=== PATIENT | female | born 1965 | race Caucasian/White ===

== ENCOUNTER → 2022-12-26 15:14 | Outpatient (BNVA) | payer BC, SELFPAY | PROVIDERS: Visit Provider Family Medicine | DX: E03.9 Hypothyroidism, unspecified (principal); Z85.3 Personal history of malignant neoplasm of breast; Z85.828 Personal history of other malignant neoplasm of skin | CPT/HCPCS: 80053; 80061; 84439; 84443; 85025 ==

== ENCOUNTER → 2023-01-30 13:41 | Outpatient (BNVA) | payer BC, SELFPAY | PROVIDERS: Referring Provider Family Medicine; Visit Provider Obstetrics & Gynecology | DX: Z12.4 Encounter for screening for malignant neoplasm of cervix (principal) | CPT/HCPCS: 87624 ==

== ENCOUNTER → 2023-02-14 13:57 | Outpatient (BNVA) | payer BC, SELFPAY | PROVIDERS: Visit Provider Nurse Practitioner Family | DX: R05.9 Cough, unspecified (principal); J06.9 Acute upper respiratory infection, unspecified | CPT/HCPCS: 87426 ==

== ENCOUNTER 2023-02-15 14:33 | Outpatient (CLI) | payer BC, SELFPAY ==
--- NOTE | 2023-02-15 14:50 | MM_ITS ---
WS: [id number] BILATERAL 3D TOMOSYNTHESIS DIGITAL DIAGNOSTIC MAMMOGRAPHY WITH CAD CLINICAL INFORMATION: ANNUAL - HX BR CA HISTORY: History of LEFT breast cancer with lumpectomy and radiation COMPARISON: Outside studies December 2017 TECHNIQUE: Bilateral CC, MLO, and ML views. FINDINGS: Scattered fibroglandular densities bilaterally. Surgical clips upper outer quadrant LEFT breast with lumpectomy changes. This is similar to previous. Treatment related changes LEFT breast. Incidental pu nctate calcifications. No suspicious focal mass, asymmetry, calcifications, or architectural distortion. No evidence of trent gnancy. IMPRESSION: MM/[place] [id number] BI-RADS: 2-Benign FOLLOW UP: 1 Year Follow-up Recommend return to annual diagnostic mammography.
== END 2023-02-15 14:34 | disposition home or self-care (01) ==
PROVIDERS: PCP Family Medicine; Visit Provider Family Medicine
DX: Z85.3 Personal history of malignant neoplasm of breast (principal)
CPT/HCPCS: 77062; G0279

== ENCOUNTER 2023-07-09 08:21 | Oncology outpatient (recurring) (ONCR) | payer BC, SELFPAY ==
[2023-07-09 09:44] VITALS: BP 133/96; PULSE 85; RESP 16; TEMP 36.6; O2SAT 97
[2023-07-09 09:59] LABS: Basophils # 0.1 10^3/uL (0.0-0.1); Basophils % 0.9 %; Eosinophils # 0.2 10^3/uL (0.0-0.8); Eosinophils % 2.2 %; Lymphocytes # 2.2 10^3/uL (0.8-4.8); Lymphocytes % 23.8 %; Mean Corpuscular HGB Conc 32.1 g/dL (30-55); Mean Corpuscular Hemoglobin 29.5 pg (27-33); Mean Corpuscular Volume 91.7 fl (85-98); Mean Platelet Volume 10.5 fL (7.4-10.4); Monocytes # 0.9 10^3/uL (0.2-0.9); Monocytes % 9.8 %; Neutrophils # 5.75 10^3/uL (1.8-7.7); Neutrophils % 63.1 %; Nucleated Red Blood Cells % 0 %; Platelet Count 270 10^3/cmm (157-399); Red Blood Count 4.58 10^6/uL (3.85-5.65); White Blood Count 9.11 10^3/uL (3.29-11.43)
[2023-07-09 10:20] LABS: Alanine Aminotransferase 14 U/L (0-33); Albumin Level 4.5 g/dL (3.5-5.2); Alkaline Phosphatase 139 U/L (35-105); Anion Gap 15.8 (5-19); Aspartate Amino Transferase 14 U/L (0-32); Blood Urea Nitrogen 18 mg/dL (6-20); Calcium 10.2 mg/dL (8.5-10.5); Carbon Dioxide 26 mmol/L (22-29); Chloride 102 mmol/L (98-107); Globulin 3.8 g/dL (1.3-4.6); Glomerular Filtration Rate 73.4 mL/min (90-130); Glucose 94 mg/dL (65-115); Osmolality Calculated 290 mOsm/kg (285-295); Potassium 4.8 mmol/L (3.5-5.1); Sodium 139 mmol/L (136-145); Total Bilirubin 0.3 mg/dL (0.15-1.2); Total Protein 8.3 g/dL (6.6-8.7)
== END 2023-07-11 23:59 | disposition home or self-care (01) ==
PROVIDERS: PCP Family Medicine; Visit Provider Internal Medicine
DX: C50.912 Malignant neoplasm of unspecified site of left female breast (principal)
CPT/HCPCS: 36415; 80053; 85025

== ENCOUNTER → 2023-09-07 15:39 | Outpatient (BNVA) | payer BC, SELFPAY | PROVIDERS: PCP Family Medicine; Visit Provider Family Medicine | DX: M25.512 Pain in left shoulder | CPT/HCPCS: 73030 ==

== ENCOUNTER 2023-10-23 07:05 | Outpatient (CLI) | payer BC, SELFPAY ==
--- NOTE | 2023-10-23 07:15 | MR_ITS ---
WS: [id number] MRI LEFT SHOULDER HISTORY: rotator cuff tear COMPARISON: Radiograph 09/07/2023 TECHNIQUE: Multiplanar sequences of the shoulder joint are submitted. Mild AC joint arthritis. Narrowing of the joint space with small osteophytes. Minimal downsloping of the acromion. Mild subacromial impingement. No os acromion. Normal position of the biceps tendon. Slightly high riding humeral head. Mild narrowing of the glenohumeral joint. No atrophy of the rotato r cuff muscles. There is no edema. There is abnormal signal with thickening and possible tear involvi ng the distal subscapularis tendon. Within the distal tendon there is increased T2 signal centrally a nd loss of the normal contour of the tendon. A portion of the tendon does appear still to be intact. Mild tendinopathy in the supraspinatus tendon directly over the humeral head. Very mild flattening of the posterolateral humeral head but there is no marrow edema to suggest a rec ent or acute injury. No definite labral tear. There is degenerative fraying involving the superior an terior labrum MR/MR shoulder LT wo con* [id number] IMPRESSION: 1. Thickening and abnormal signal involving the distal subscapularis tendon. I ncreased fluid signal in the central distal tendon suggest may be a split tear along with tendinopathy. 2. Mild AC joint arthritis. 3. Fraying and degenerative changes involving the superior and anterior labrum but no definite tear. 4. Mild tendinopathy distal supraspinatus tendon directly over the humeral hea d.
== END 2023-10-23 07:06 | disposition home or self-care (01) ==
LOC: RAD 07:05
PROVIDERS: PCP Family Medicine; Visit Provider Family Medicine
DX: M25.512 Pain in left shoulder (principal); M75.102 Unspecified rotator cuff tear or rupture of left shoulder, not specified as traumatic; M19.012 Primary osteoarthritis, left shoulder
CPT/HCPCS: 73221

== ENCOUNTER 2023-10-30 12:35 | Outpatient (RCR) | payer BC, SELFPAY | END 2023-11-09 23:59 | disposition home or self-care (01) | LOC: SPT 12:35 | PROVIDERS: PCP Family Medicine; Visit Provider Family Medicine | DX: M25.512 Pain in left shoulder (principal) | CPT/HCPCS: 97110; 97161; G0283 ==

== ENCOUNTER 2023-11-10 06:00 | Outpatient (RCR) | payer BC, SELFPAY | END 2023-12-09 23:59 | disposition home or self-care (01) | LOC: SPT 06:00 | PROVIDERS: PCP Family Medicine; Visit Provider Family Medicine | DX: M25.512 Pain in left shoulder (principal) | CPT/HCPCS: 97110; G0283 ==

== ENCOUNTER → 2023-11-23 08:26 | Outpatient (BNVA) | payer BC, SELFPAY | PROVIDERS: PCP Family Medicine; Visit Provider Family Medicine | DX: E03.9 Hypothyroidism, unspecified (principal) | CPT/HCPCS: 84439; 84443 ==

== ENCOUNTER 2024-04-04 08:37 | Oncology outpatient (recurring) (ONCR) | payer BC, SELFPAY ==
[2024-04-04 09:16] LABS: Basophils # 0.1 10^3/uL (0.0-0.1); Basophils % 0.6 %; Eosinophils # 0.3 10^3/uL (0.0-0.8); Eosinophils % 2.6 %; Hematocrit 41.7 % (36-47); Lymphocytes # 2.4 10^3/uL (0.8-4.8); Mean Corpuscular HGB Conc 31.4 g/dL (30-55); Mean Corpuscular Hemoglobin 29.7 pg (27-33); Mean Corpuscular Volume 94.6 fl (85-98); Mean Platelet Volume 10.8 fL (7.4-10.4); Monocytes % 10.5 %; Neutrophils # 5.89 10^3/uL (1.8-7.7); Nucleated Red Blood Cells % 0 %; Platelet Count 267 10^3/cmm (157-399); Red Blood Count 4.41 10^6/uL (3.85-5.65); Red Cell Distribution Width 14.9 % (12.1-15.1); White Blood Count 9.67 10^3/uL (3.29-11.43)
[2024-04-04 09:41] LABS: Alanine Aminotransferase 16 U/L (0-33); Albumin Level 4.1 g/dL (3.5-5.2); Alkaline Phosphatase 119 U/L (35-105); Aspartate Amino Transferase 14 U/L (0-32); Blood Urea Nitrogen 19 mg/dL (8-23); Calcium 8.9 mg/dL (8.5-10.5); Carbon Dioxide 25 mmol/L (22-29); Chloride 106 mmol/L (98-107); Creatinine Clr Calc Pharmacy 134.7174; Globulin 3.3 g/dL (1.3-4.6); Glucose 89 mg/dL (65-115); Osmolality Calculated 294 mOsm/kg (285-295); Sodium 141 mmol/L (136-145); Total Bilirubin 0.3 mg/dL (0.15-1.2); Total Protein 7.4 g/dL (6.6-8.7)
[2024-04-04 12:03] LABS: 25 Hydroxy Vitamin D 21 ng/mL (30-100)
== END 2024-04-10 23:59 | disposition home or self-care (01) ==
PROVIDERS: Nurse Practitioner Family; PCP Family Medicine; Visit Provider Internal Medicine
DX: M85.80 Other specified disorders of bone density and structure, unspecified site (principal); C50.912 Malignant neoplasm of unspecified site of left female breast; Z85.3 Personal history of malignant neoplasm of breast
CPT/HCPCS: 36415; 80053; 82306; 85025

== ENCOUNTER 2024-04-16 15:29 | Oncology outpatient (recurring) (ONCR) | payer BC, SELFPAY ==
--- NOTE | 2024-04-16 15:30 | XR_ITS ---
WS: [id number] SCREENING DEXA SCAN [employer] CLINICAL INFORMATION: osteopenia, history of AI use COMPARISON: None. FINDINGS: The L1-L4 bone mineral density measures 1.052 g/cm2. This corresponds to a T score score of -1.1 and Z score of -1.0. Left femoral neck bone mineral density measures 0.913 g/cm2. This corresponds to a T score of -0.8 an d Z score of -0.7. Right femoral neck bone mineral density measures 0.852 g/cm2. This corresponds to a T score -1.2of an d Z score of -1.1. Mean femoral neck bone mineral density measures 0.882 g/cm2. This corresponds to a T score of -1.0 an d Z score of -0.9. XR/XR DEXA axial skeleton* [id number] IMPRESSION: Osteopenia lumbar spine. Osteopenia femoral necks. Patient's FRAX calculated 10 year probability for major osteoporotic fracture i s 6.6% and osteoporotic hip fracture is 0.4%.
== END 2024-05-10 23:59 | disposition home or self-care (01) ==
PROVIDERS: PCP Family Medicine; Visit Provider Nurse Practitioner Family
DX: C50.912 Malignant neoplasm of unspecified site of left female breast (principal); Z79.811 Long term (current) use of aromatase inhibitors; M85.88 Other specified disorders of bone density and structure, other site
CPT/HCPCS: 77080

== ENCOUNTER 2024-05-15 14:48 | Outpatient (CLI) | payer BC, SELFPAY ==
--- NOTE | 2024-05-15 15:00 | MM_ITS ---
WS: [id number] BILATERAL 3D TOMOSYNTHESIS DIGITAL DIAGNOSTIC MAMMOGRAPHY WITH CAD CLINICAL INFORMATION: History of Breast CA HISTORY: History of LEFT lumpectomy with radiation treatments. COMPARISON: 2022 TECHNIQUE: Bilateral CC, MLO, and ML views. FINDINGS: The breasts are composed of heterogeneous fibroglandular density, which can limit the detection of sm all underlying mass lesions. Stable postoperative changes LEFT lumpectomy with volume loss and parenc hymal fibrosis. Surgical clips upper outer LEFT breast. No new suspicious normalities LEFT breast. RI GHT breast is stable in appearance. No suspicious focal mass, asymmetry, calcifications, or architectural distortion. No evidence of trent gnancy. MM/MM diag BI tomosynthesis [id number] IMPRESSION: DENSITY: The breasts are heterogeneously dense, which may obscure small masses. BI-RADS: 2 - Benign FOLLOW UP: 1 Year Follow-up Recommend return to annual diagnostic mammography.
== END 2024-05-15 14:49 | disposition home or self-care (01) ==
PROVIDERS: PCP Family Medicine; Visit Provider Family Medicine
DX: C50.912 Malignant neoplasm of unspecified site of left female breast (principal); R92.333 Mammographic heterogeneous density, bilateral breasts; Z98.890 Other specified postprocedural states
CPT/HCPCS: 77062; G0279

== ENCOUNTER 2024-07-15 13:44 | Oncology outpatient (recurring) (ONCR) | payer BC, SELFPAY ==
[2024-07-15 14:31] LABS: Basophils # 0.1 10^3/uL (0.0-0.1); Basophils % 0.9 %; Eosinophils # 0.2 10^3/uL (0.0-0.8); Eosinophils % 2.5 %; Hematocrit 41.2 % (36-47); Lymphocytes # 2.4 10^3/uL (0.8-4.8); Lymphocytes % 27.2 %; Mean Corpuscular HGB Conc 31.8 g/dL (30-55); Mean Corpuscular Hemoglobin 29.2 pg (27-33); Mean Platelet Volume 10.8 fL (7.4-10.4); Monocytes # 0.8 10^3/uL (0.2-0.9); Monocytes % 9.1 %; Neutrophils # 5.36 10^3/uL (1.8-7.7); Neutrophils % 60.1 %; Nucleated Red Blood Cells % 0 %; Platelet Count 256 10^3/cmm (157-399); Red Blood Count 4.48 10^6/uL (3.85-5.65); White Blood Count 8.92 10^3/uL (3.29-11.43)
[2024-07-15 14:46] LABS: Alanine Aminotransferase 13 U/L (0-33); Albumin Level 4.3 g/dL (3.5-5.2); Alkaline Phosphatase 124 U/L (35-105); Anion Gap 14.4 (5-19); Aspartate Amino Transferase 16 U/L (0-32); Blood Urea Nitrogen 14 mg/dL (8-23); Calcium 9.6 mg/dL (8.5-10.5); Carbon Dioxide 26 mmol/L (22-29); Chloride 105 mmol/L (98-107); Globulin 3.3 g/dL (1.3-4.6); Glucose 115 mg/dL (65-115); Osmolality Calculated 293 mOsm/kg (285-295); Potassium 4.4 mmol/L (3.5-5.1); Sodium 141 mmol/L (136-145); Total Bilirubin 0.3 mg/dL (0.15-1.2); Total Protein 7.6 g/dL (6.6-8.7)
[2024-07-15 15:42] LABS: 25 Hydroxy Vitamin D 22 ng/mL (30-100)
== END 2024-08-08 23:59 | disposition home or self-care (01) ==
LOC: ONCMED 13:45
PROVIDERS: PCP Family Medicine; Visit Provider Nurse Practitioner Family
DX: C50.912 Malignant neoplasm of unspecified site of left female breast (principal)
CPT/HCPCS: 36415; 80053; 82306; 85025

== ENCOUNTER → 2024-10-06 10:44 | Outpatient (BNVA) | payer BC, SELFPAY | PROVIDERS: PCP Family Medicine; Visit Provider Family Medicine | DX: E03.9 Hypothyroidism, unspecified (principal); Z68.41 Body mass index [BMI] 40.0-44.9, adult; F32.A Depression, unspecified; M25.512 Pain in left shoulder; L60.9 Nail disorder, unspecified | CPT/HCPCS: 80053; 80061; 82306; 84439; 84443; 85025 ==

== ENCOUNTER → 2025-03-26 11:10 | Outpatient (BNVA) | payer BC, SELFPAY | PROVIDERS: PCP Family Medicine; Visit Provider Nurse Practitioner | DX: J02.9 Acute pharyngitis, unspecified (principal) | CPT/HCPCS: 87880 ==

== ENCOUNTER → 2025-04-01 11:42 | Outpatient (BNVA) | payer BC, SELFPAY | PROVIDERS: PCP Family Medicine; Visit Provider Family Medicine | DX: E03.9 Hypothyroidism, unspecified (principal) | CPT/HCPCS: 80053; 84439; 84443 ==

== ENCOUNTER 2025-05-11 06:18 | Day surgery (SDC) | payer BC, SELFPAY ==
[2025-05-11 06:28] VITALS: BP 135/105; PULSE 114; RESP 16; TEMP 36.1; O2SAT 96; BMI 43.5
--- NOTE | 2025-05-11 06:50 | ANES.PREANE2 ---
Pre-Anesthetic Assessment Height/Weight: Height 1.68 m Weight 122.47 kg Temp Pulse Resp BP Pulse Ox O2 Del Method 97 F L 114 H 16 135/105 96 Room Air 05/11/25 06:28 05/11/25 06:28 05/11/25 06:28 05/11/25 06:28 05/11/25 06:28 05/11/25 06:28 Preop Diagnosis: Screening Operation Date: 05/11/25 07:00 Proposed Procedures p Colonoscopy [id number] G0105 Z12.11(Not Applicable) - Luis Horton MD Was Beta Vero taken within 24 hours: N/A Was Clonidine taken within 24 hours: N/A Last intake: Intake Last Liquid Date 05/11/25 Last Liquid Time 05:00 Last Solid Date 05/09/25 Last Solid Time 08:00 Social No alcohol and No tobacco Exam alert, oriented x 3, clear to auscultation bilaterally and regular rate & rhythm Airway Submandibular: within normal limits Cervical ROM: within normal limits Mallampati: Class II Dentition: full History/ROS No significant history except as noted and No significant complaints Pulmonary None reported CV/HEM None reported None reported Hepatic None reported GI None reported Metabolic Morbid Obesity and Thyroid Disease Musc/skel None reported Neuropsych None reported Anesthetic Plan ASA status: 2 Anesthesia: Anesthesia Evaluation and MAC Risk of > 500 ml blood loss (7ml/kg in children): No Medications/Allergies Home Medications ?Medication ?Instructions ?Recorded ?Confirmed ?Last Taken ?Type escitalopram oxalate 20 mg tablet 20 mg PO DAILY #90 tabs 10/06/24 05/04/25 05/11/25 Rx levothyroxine 100 mcg tablet 100 mcg PO DAILY #90 tabs 04/03/25 05/04/25 05/11/25 Rx Allergies Allergy/AdvReac Type Severity Reaction Status Date / Time povidone-iodine (From Allergy Intermediate ALGY-Bliste Verified 05/04/25 08:19 Betadine) r Penicillins Allergy Mild ALGY-Hives Verified 05/04/25 08:19 sulfamethoxazole (From AdvReac Mild ALGY-Hives Verified 05/04/25 08:19 Bactrim) trimethoprim (From Bactrim) AdvReac Mild ALGY-Hives Verified 05/04/25 08:19 Current Medications Generic Name Dose Route Start Last Admin Trade Name Freq PRN Reason Stop Dose Admin Sodium Chloride 1,000 mls @ 15 mls/hr 05/11/25 06:22 05/11/25 06:33 Sodium Chloride 0.9% IV 05/12/25 06:21 15 mls/hr .Q24H PRN Administration COLONOSCOPY FLUIDS PFSH Anesthesia Medical History Osteopenia Breast cancer, left breast Hx of breast cancer Hypothyroidism Depression History of left breast cancer 2017, stage 1, radiation and surgery Surgical History History of partial mastectomy of left breast History of hysterectomy History of cholecystectomy History of knee replacement procedure of right knee History of arthroscopic knee surgery x4 right knee, x1 left knee History of left salpingo-oophorectomy Family History Father Cancer, Onset Age: 80 breast Grandfather Cancer Paternal lymphoma Other Hyperlipidemia Hypertension Denies family history of Diabetes CAD (coronary artery disease) Clotting disorder Dementia Psychiatric illness Chronic kidney disease (CKD) Anesthesia complication Bleeding disorder Lung disease Stroke Social History Smoking and tobacco/nicotine status: never used tobacco/nicotine Alcohol intake: current Alcohol intake frequency: holidays/special occasions only Substance/Drug Use: never Lives independently: Yes Marital status: Number of children: 0 Current occupational status: employed Current occupation: therapeutic sales specialist Susan/[employer]: [employer] Special susan needs: No Agree to transfusion: Yes
--- NOTE | 2025-05-11 07:11 | W.PM.OPSUD ---
Surgery/Procedure H&P Update DATE OF PROCEDURE: May 11, 2025 DATE H&P PERFORMED: 04/16/25 H&P UPDATE INFORMATION: I have reviewed H&P completed within last 30 days, I have examined patient prior to procedure, No changes to prior documentation and Risks and benefits of the procedure reviewed PREOP DIAGNOSIS: Screening PLANNED PROCEDURE: Operation Date: 05/11/25 07:00 Proposed Procedures p Colonoscopy [id number] G0105 Z12.11(Not Applicable) - Luis Horton MD
[2025-05-11 07:38] VITALS: BP 128/80; PULSE 82; RESP 20; TEMP 36.2; O2SAT 93
[2025-05-11 07:45] VITALS: BP 126/84; PULSE 89; RESP 18; O2SAT 96
--- NOTE | 2025-05-11 08:20 | ANE.PACU2 ---
Inpatient post-anesthesia follow up: Airway intact: Yes Vital signs: Temperature 97.2 F Pulse Rate 89 Respiratory Rate 18 Blood Pressure 126/84 Pulse Oximetry 96 Oxygen Delivery Me thod Room Air Oxygen Flow Rate Fraction of Inspir ed Oxygen Hydration adequate: Yes Nausea and vomiting: No Pain level: 1 Mental status: Baseline
== END 2025-05-11 08:20 | disposition home or self-care (01) ==
PROVIDERS: PCP Family Medicine; Visit Provider Student in an Organized Health Care Education/Training Program
PROC: 0DJD8ZZ Inspection of Lower Intestinal Tract, Via Natural or Artificial Opening Endoscopic (ICD-10-PCS; CPT 45378; principal; 2025-05-11 07:00)
DX: Z12.11 Encounter for screening for malignant neoplasm of colon (principal); D12.4 Benign neoplasm of descending colon; Z85.3 Personal history of malignant neoplasm of breast; E03.9 Hypothyroidism, unspecified; F32.A Depression, unspecified; Z80.3 Family history of malignant neoplasm of breast; Z80.7 Family history of other malignant neoplasms of lymphoid, hematopoietic and related tissues; E66.01 Morbid (severe) obesity due to excess calories; Z68.41 Body mass index [BMI] 40.0-44.9, adult
CPT/HCPCS: 45385; 88305; J2371; J2704; J7030; J9999